=== PATIENT | female | born 1995 | race Caucasian/White ===

== ENCOUNTER → 2017-02-05 | Outpatient (CLI) | payer OTHER ==
--- NOTE | 2017-02-05 10:42 | Diagnostic Imaging Report ---
PROCEDURE: US Gallbladder. TECHNIQUE: Multiple real-time grayscale images were obtained over the right upper quadrant in various projections. INDICATION: Biliary colic. FINDINGS: The visualized portions of the pancreas appear unremarkable. The liver is fairly homogeneous with no focal lesion seen. The gallbladder demonstrates no stones, wall thickening, or pericholecystic fluid. The CBD is 2 mm in caliber. The right kidney is 11 cm in length with no hydronephrosis or focal lesion. No fluid collection is seen in the upper right quadrant. Sonographic Mata sign is negative. IMPRESSION: Unremarkable exam. Dictated by: Dictated on workstation # [id number]
== END ==
LOC: RAD 09:08
PROVIDERS: ATTEND Obstetrics & Gynecology
DX: K80.50 Calculus of bile duct without cholangitis or cholecystitis without obstruction (principal)
CPT/HCPCS: 76705

== ENCOUNTER → 2017-02-21 | Outpatient (CLI) | payer OTHER ==
[~2017-02-21] MED LIST: CATHETER FLUSH 10 ML SYR IV PRN
--- NOTE | 2017-02-21 12:44 | Diagnostic Imaging Report ---
INDICATION: Biliary colic. After intravenous administration of 5.5 mCi Tc 99m Choletec, scintigraphic imaging is performed over the abdomen. There is normal distribution of activity throughout the liver on initial images. There is prompt appearance of activity in the biliary tree and gallbladder. Activity passes into the small bowel. Patient ingested fatty meal which resulted in gallbladder contraction and an ejection fraction of 21%. IMPRESSION: No scintigraphic evidence of acute cholecystitis or biliary obstruction. Gallbladder ejection fraction is calculated to be 21%. Normal values are 35% or more. Depression of gallbladder ejection can be seen with chronic cholecystitis or biliary dyskinesia. Dictated by: Dictated on workstation # [id number]
== END ==
LOC: EDUNIT# 02-01 08:26 → RAD 09:34
PROVIDERS: ATTEND Obstetrics & Gynecology
DX: K80.50 Calculus of bile duct without cholangitis or cholecystitis without obstruction (principal)
CPT/HCPCS: 78227

== ENCOUNTER 2017-03-04 06:53 | Outpatient (CLI) | payer OTHER ==
[~2017-03-04] VITALS: Ht 185.4 cm; Wt 93.0 kg
[2017-03-04] MEDS ORDERED: DESO1TAB4 PO (15:42)
== END 2017-03-04 15:53 ==
LOC: PREOP 06:53
PROVIDERS: ATTEND Surgery
DX: Z01.818 Encounter for other preprocedural examination (principal); K82.8 Other specified diseases of gallbladder

== ENCOUNTER 2017-03-07 07:31 | Day surgery (SDC) | payer OTHER ==
[~2017-03-07] VITALS: Ht 185.4 cm; Wt 93.0 kg
[~2017-03-07 07:31] MED LIST changes: -CATHETER FLUSH 10 ML SYR IV PRN; +DESO1TAB4 PO
--- NOTE | 2017-03-07 07:54 | Progress Note-Pre Operative ---
Pre-Operative Progress Note H&P Reviewed The H&P was reviewed, patient examined and no changes noted. Date Seen by Provider: Mar 07, 2017 Time Seen by Provider: 07:54 Date H&P Reviewed: Mar 07, 2017 Time H&P Reviewed: 07:54 Pre-Operative Diagnosis: GB dyskinesia LEEROY MALAGON MD Mar 07, 2017 7:54 am
[2017-03-07] MEDS ORDERED: MIDAZOLAM 2 MG/2 ML (VERSED) VIAL IV ONE (08:00)
[2017-03-07] MEDS ORDERED: FAMOTIDINE 20MG/2ML IV (PEPCID) IV ONE (08:00)
[2017-03-07] MEDS ORDERED: ONDANSETRON 4 MG/2 ML (SDV) Z0FRAN IV ONE (08:00)
[2017-03-07] MEDS ORDERED: SCOPOLAMINE 1.5 MG (TRANSDERM-SCOP) PATCH TOP ONE (08:00)
[2017-03-07] MEDS ORDERED: CATHETER FLUSH 10 ML SYR IV PRN (08:45)
[2017-03-07] MEDS ORDERED: metroNIDAZOLE 500 MG/100 ML IVPB (PRE-MIX) IV ONE (08:45)
[2017-03-07] MEDS ORDERED: ceFAZolin 2 GM/NS 50 ML IV ONE (08:45)
[2017-03-07 08:46] LABS: BASOPHILS % (AUTO) 1 % (0-10); EOSINOPHILS # (AUTO) 0.1 10^3/uL (0.0-0.3); EOSINOPHILS % (AUTO) 2 % (0-10); LYMPHOCYTES # (AUTO) 1.5 X 10^3 (1.0-4.0); LYMPHOCYTES % (AUTO) 25 % (12-44); MEAN CORPUSCULAR HEMOGLOBIN 30 PG (25-34); MEAN CORPUSCULAR HGB CONC 34 G/DL (32-36); MEAN CORPUSCULAR VOLUME 87 FL (80-99); MEAN PLATELET VOLUME 11.4 FL (7.4-10.4); MONOCYTES # (AUTO) 0.5 X 10^3 (0.0-1.0); MONOCYTES % (AUTO) 8 % (0-12); NEUTROPHILS # (AUTO) 4.1 X 10^3 (1.8-7.8); NEUTROPHILS % (AUTO) 65 % (42-75); PLATELET COUNT 191 10^3/uL (130-400); RED BLOOD COUNT 4.51 10^6/uL (4.35-5.85); RED CELL DISTRIBUTION WIDTH 12.1 % (10.0-14.5); WHITE BLOOD COUNT 6.2 10^3/uL (4.3-11.0)
[2017-03-07] MEDS: LACTATED RINGERS 1,000 ML IV PRN ×2 (09:00→11:00)
[2017-03-07] MEDS ORDERED: BUP/EPI 0.5% 1:200,000 (MARCAINE) 10ML VIAL IJ ONE (09:04)
[2017-03-07] MEDS ORDERED: fentaNYL INJECTION 250 MCG/5 ML AMP ONE (09:11)
[2017-03-07] MEDS ORDERED: CEPH250C PO (09:12)
[2017-03-07 09:13] VITALS: BP 126/84
[2017-03-07] MEDS ORDERED: ROCURONIUM 50 MG/5 ML (ZEMURON) VIAL IV ONE (09:13)
[2017-03-07] MEDS ORDERED: proPOfol 200 MG/20 ML (DIPRIVAN) VIAL IV ONE (09:13)
[2017-03-07] MEDS ORDERED: MIDAZOLAM 2 MG/2 ML (VERSED) VIAL ONE (09:13)
[2017-03-07] MEDS ORDERED: LIDOCAINE JELLY 2% (XYLOCAINE) 5 ML TUBE ONE (09:13)
[2017-03-07] MEDS ORDERED: LACTATED RINGERS 1,000 ML IV ONE (09:13)
[2017-03-07] MEDS ORDERED: ONDANSETRON 4 MG/2 ML (SDV) Z0FRAN ONE ×2 (09:13→11:17)
[2017-03-07] MEDS ORDERED: LIDOCAINE PF 2% 5 ML (XYLOCAINE) VIAL ONE (09:13)
[2017-03-07] MEDS ORDERED: SEVOFLURANE (ULTANE) 15 ML INHAL SOLN ONE ×2 (10:36→10:59)
[2017-03-07] MEDS ORDERED: GLYCOPYRROLATE 0.2 MG/ML (ROBINUL) 2 ML VIAL ONE (10:43)
[2017-03-07] MEDS ORDERED: NEOSTIGMINE (BLOXIVERZ ) 1 MG/1ML 10 ML VIAL ONE (10:43)
[2017-03-07] MEDS ORDERED: MEPERIDINE (DEMEROL) INJ 50 MG/ML ONE (10:51)
--- NOTE | 2017-03-07 10:51 | Operative Report ---
Operative Report Date of Procedure/Surgery Mar 07, 2017 Surgeon (s) LEEROY MALAGON MD Checking Clerk (s): not applicable Post-Operative Diagnosis same Procedure Performed robotic-assisted cholecystectomy Description of Procedure Anesthesia Type: General Estimated blood loss (mL): minimal Specimen(s) collected/removed gallbladder Description of the Procedure Indication for the procedure: This lady presented with symptoms due to dyskinesia of the gallbladder. She was offered cholecystectomy using minimally invasive technique with robotic assistance. Informed consent was obtained after reviewing the operative details and complications of wound infection, bile leak and the possibility of persistent symptoms. Description of the procedure: She was placed supine on the operative table and general anesthesia induced using an endotracheal tube. 2 g of Ancef and 500 mg of Flagyl were administered intravenously as prophylaxis against wound infection. Sequential compression devices were placed around her legs, to minimize the risk of venous thrombosis. Abdomen was prepared and draped in the usual sterile manner. Pneumoperitoneum was established using a Veress needle introduced inferior to the umbilicus. Intra-abdominal pressure was maintained at 15 mmHg, using carbon dioxide insufflation. A 12 mm trocar was placed and anatomy visualized using the high definition, 3-dimensional laparoscope, associated with da Hernan system. Under direct view, I placed an 8 mm cannula over each side of the abdomen, followed by a 5 mm trocar over the left subcostal region. The patient was then turned into reverse Trendelenburg position, with the right side tilted up. The robotic system was then docked in place. The fundus of the gallbladder was retracted cephalad and the infundibulum grasped with robotic Cardiere forceps. Due to the tense nature of the gallbladder, I. intentionally made a small incision at the fundus with the hook cautery and decompressed some of the bile. This was suctioned at the end of the operation. Subsequently, I was able to continue the dissection around Juliet' s triangle. Cystic duct and artery were delineated and controlled using locking clips. Cholecystectomy was then completed using hook cautery. The gallbladder was then placed in an Endo Catch bag and removed via the subumbilical trocar site. The fascia over this incision was closed using #1 Vicryl using a Manuel Yancey device. Skin incisions were closed using 4-0 Vicryl, in a subcuticular fashion. 0.25 percent Marcaine with epinephrine was infiltrated along the incisions, both pre-emptying the and at the conclusion of the operation. She tolerated the procedure well, was extubated in the operating room and taken to the recovery room in a stable condition. Findings of the Procedure see operative report Allergies and Home Medications Allergies Coded Allergies: hydrocodone (Unverified Allergy, Intermediate, HIVES, 03/04/17) Home Medications Cephalexin Unknown Strength Capsule, Unknown Dose PO, (Reported) Desogestrel-Ethinyl Estradiol 1 Each Tablet, 1 EACH PO DAILY, (Reported) LEEROY MALAGON MD Mar 07, 2017 10:51 am
[2017-03-07] MEDS ORDERED: morphine INJ 10 MG/ML 1ML (SYR OR VIAL) ONE (10:52)
[2017-03-07] MEDS ORDERED: OXYC-197 PO (10:52)
--- NOTE | 2017-03-07 10:53 | Discharge Inst-Simple/Standard ---
Discharge Inst-Standard Discharge Medications New, Converted or Re-Newed RX: RX on Chart Patient Instructions/Follow Up Plan of Care/Instructions/FU: Band-Aids off in 48 hours. Incentive spirometry. Follow-up in 3 weeks. Activity as Tolerated: Yes Discharge Diet: No Restrictions LEEROY MALAGON MD Mar 07, 2017 10:53 am
[2017-03-07] MEDS: MEPERIDINE (DEMEROL) INJ 50 MG/ML IVP PRN ×2 (11:10→11:20)
[2017-03-07] MEDS ORDERED: ONDANSETRON 4 MG/2 ML (SDV) Z0FRAN IVP PRN (11:15)
[2017-03-07] MEDS: fentaNYL INJECTION 100 MCG/2 ML AMP IVP PRN ×3 (11:15→11:37)
[2017-03-07 11:55] VITALS: BP 132/78
[2017-03-07 12:25] VITALS: BP 133/77
[2017-03-07 12:55] VITALS: BP 128/75
[2017-03-07] MEDS ORDERED: PROMETHAZINE INJ 25 MG/ML (PHENERGAN) AMP IVP ONE ×2 (13:00)
[2017-03-07] MEDS ORDERED: TRAM50TA2 PO (13:07)
[2017-03-07 14:55] VITALS: BP 128/75
== END 2017-03-07 14:55 | disposition home or self-care (01) ==
LOC: SDC 07:31
PROVIDERS: ATTEND Surgery
DX: K81.1 Chronic cholecystitis (principal); Z87.891 Personal history of nicotine dependence
CPT/HCPCS: 36415; 84703; 85025; 87081; 88304; 94664

== ENCOUNTER 2018-06-16 05:40 | Outpatient (CLI) | payer OTHER ==
[~2018-06-16] VITALS: Ht 185.4 cm; Wt 93.0 kg
[~2018-06-16 05:40] MED LIST changes: +CEPH250C PO; +OXYC1TAB87 PO; +TRAM50TA2 PO
== END 2018-06-16 14:42 | disposition home or self-care (01) ==
LOC: PREOP 05:40
PROVIDERS: ATTEND Surgery
DX: Z01.818 Encounter for other preprocedural examination (principal)

== ENCOUNTER 2018-06-23 09:34 | Day surgery (SDC) | payer OTHER ==
[~2018-06-23] VITALS: Ht 185.4 cm; Wt 93.0 kg
[2018-06-23] MEDS ORDERED: MIDAZOLAM 2 MG/2 ML (VERSED) VIAL IVP ONE ×2 (09:45→10:30)
[2018-06-23] MEDS ORDERED: fentaNYL INJECTION 100 MCG/2 ML AMP IVP ONE (09:45)
[2018-06-23] MEDS ORDERED: NS IV 500 ML 500 ML IV PRN (09:45)
[2018-06-23 10:11] VITALS: BP 119/88
[2018-06-23] MEDS ORDERED: MIDAZOLAM 2 MG/2 ML (VERSED) VIAL ONE ×4 (10:27→11:32)
--- NOTE | 2018-06-23 10:53 | Conscious Sedation/ASA ---
Conscious Sedation Pre-Proced Time 10:53 ASA Score 2 For ASA 3 and 4: Consider anesthesia and medical clearance. Also, for patients with a history of failed moderate sedation consider anesthesia. Airway Lungs Heart ASA score ASA 1: a normal healthy patient ASA 2: a patient with a mild systemic disease (mid diabetes, controlled hypertension, obesity ASA 3: a patient with a severe systemic disease that limits activity (angina , COPD, prior Myocardial infarction) ASA 4: a patient with an incapacitating disease that is a constant threat to life (CHF, renal failure) ASA 5: a moribund patient not expected to survive 24 hrs. (ruptured aneurysm) ASA 6: a declared brain patient whose organs are being harvested. For emergent operations, add the letter E after the classification Mallampati Classification Grade 1 Sedation Plan Discussed options with patient/fam The patient is an appropriate candidate to undergo the planned procedure, sedation, and anesthesia. The patient immediately re-assessed prior to indication. LEEROY MALAGON MD Jun 23, 2018 10:53
--- NOTE | 2018-06-23 10:53 | History & Physicial ---
History of Present Illness History of Present Illness Reason for visit/HPI to undergo colonoscopy regarding rectal bleeding. Date of Admission 06/23/18 Date Seen by a Provider: Jun 23, 2018 Time Seen by a Provider: 10:51 I consulted on this patient on 06/23/18 10:51 Attending Physician Leeroy Malagon MD Admitting Physician No,Local Physician Consult Allergies and Home Medications Allergies Coded Allergies: hydrocodone (Unverified Allergy, Intermediate, HIVES, 06/16/18) sulfamethoxazole (Verified Allergy, Mild, HIVES, 06/16/18) trimethoprim (Verified Allergy, Mild, HIVES, 06/16/18) acetaminophen (Verified Allergy, Unknown, RASH, 06/16/18) oxycodone (Verified Allergy, Unknown, RASH, 06/16/18) Home Medications Desogestrel-Ethinyl Estradiol 1 Each Tablet, 1 EACH PO DAILY, (Reported) Patient Home Medication List Home Medication List Reviewed: Yes Past [place]ve[place]-Rsboxd-Whugdp Hx Patient Social History Marrital Status: single Employed/Student: employed Alcohol Use: Occasionally Uses Recreational Drug Use: No Smoking Status: Current Everyday Smoker Former Smoker, Quit: Nov 03, 2015 Type Used: Cigarettes Recent Foreign Travel: No Contact w/other who traveled: No Recent Hopitalizations: No Recent Infectious Disease Expo: No Immunizations Up To Date Tetanus Booster (TDap): Unknown Seasonal Allergies Seasonal Allergies: No Surgeries Yes Gallbladder Respiratory No Currently Using CPAP: No Currently Using BIPAP: No Cardiovascular No Neurological No Reproductive System Hx Reproductive Disorders: No Sexually Transmitted Disease: No HIV/AIDS: No Female Reproductive Disorders: Denies Genitourinary UTI-Chronic Gastrointestinal Chronic Constipation, Chronic Diarrhea HEENT Loss of Vision: Bilateral Hearing Impairment: Denies Psychosocial Behavioral Health Disorders: Anxiety Blood Transfusions Adverse Reaction to a Blood Tr: No (N/A) Review of Systems Constitutional: no symptoms reported EENTM: no symptoms reported Cardiovascular: no symptoms reported Genitourinary: no symptoms reported Musculoskeletal: no symptoms reported Skin: no symptoms reported Psychiatric/Neurological: No Symptoms Reported Physical Exam Vital Signs Vital Signs - First Documented 06/23/18 10:11 Temp 97.6 Pulse 90 Resp 18 B/P (MAP) 119/88 (98) Pulse Ox 96 O2 Delivery Room Air Capillary Refill : Height, Weight, BMI Height: 6'1.00" Weight: 205lbs. 0.0oz. 92.918469bx; 27.1 BMI Method: General Appearance: No Apparent Distress Neck: Normal Inspection Respiratory: Lungs Clear Cardiovascular: Regular Rate, Rhythm Gastrointestinal: Non Tender, Soft Rectal: Deferred Extremity: Normal Inspection Neurologic/Psychiatric: Oriented x3 Skin: Warm/Dry Assessment/Plan Assessment and Plan lady with rectal bleeding. For colonoscopy. Admission Diagnosis Admission Status: Other (Outpt Proc) LEEROY MALAGON MD Jun 23, 2018 10:53
[2018-06-23] MEDS ORDERED: fentaNYL INJECTION 100 MCG/2 ML AMP ONE (11:32)
--- NOTE | 2018-06-23 12:01 | Endo Procedure Record ---
Endo Procedure Report Date of Procedure Last Colonoscopy: No Jun 23, 2018 Surgeon (s) LEEROY MALAGON MD Post Procedure/Op Diagnosis internal hemorrhoids Procedure Performed colonoscopy to cecum Description of Procedure Anesthesia Type: Conscious Sedation Specimen(s) collected/removed None Description of the Procedure Indication for the procedure: This lady came in for colonoscopy to evaluate rectal bleeding. Informed consent was obtained after reviewing the procedure in detail. Description of the procedure: She was placed in left lateral rectus position and her vital signs were monitored. Conscious sedation was achieved using Versed and fentanyl. Digital rectal examination was unremarkable. The colonoscope was then introduced into the rectum and advanced all the way up to cecum The quality of bowel preparation was excellent. The scope was then withdrawn slowly and the mucosa examined in a systematic fashion. Findings: A very mild degree of internal hemorrhoids, the potential source of bleeding. No polyps were found She tolerated the procedure well and was taken back to the nursing area in a stable condition. Impression: Rectal bleeding due to internal hemorrhoids. Recommend conservative management with stool softeners LEEROY MALAGON MD Jun 23, 2018 12:01
--- NOTE | 2018-06-23 12:02 | Discharge Inst-Simple/Standard ---
Discharge Inst-Standard Discharge Medications New, Converted or Re-Newed RX: Other Patient Instructions/Follow Up Plan of Care/Instructions/FU: to avoid constipation. Stool softeners as needed. Activity as Tolerated: Yes Discharge Diet: No Restrictions LEEROY MALAGON MD Jun 23, 2018 12:02
[2018-06-23 12:15] VITALS: BP 106/63
[2018-06-23 12:40] VITALS: BP 113/77
[2018-06-23 12:49] VITALS: BP 113/77
== END 2018-06-23 12:45 | disposition home or self-care (01) ==
LOC: ENDO 09:34
PROVIDERS: ATTEND Surgery
DX: K64.8 Other hemorrhoids (principal); K59.9 Functional intestinal disorder, unspecified; K52.9 Noninfective gastroenteritis and colitis, unspecified; F17.210 Nicotine dependence, cigarettes, uncomplicated
CPT/HCPCS: 84703

== ENCOUNTER 2018-11-24 21:53 | Emergency (ER) | payer OTHER ==
[~2018-11-24] VITALS: Ht 185.4 cm; Wt 102.1 kg
--- OUTSIDE RECORDS SUMMARY | 2018-11-24 21:59 | XMS REPORT | Continuity Of Care Document ---
Author Author [facility] Organization [facility] Address [address] [place] [address] Phone Care Team Providers Care Draw In Hand Name Role Phone UNASSIGNED, ED PHYSICIAN Unavailable Unavailable LINDA MCKINNEY, CAROLE Joseph PP KEN PATEL DO AT Results Results No Result Data Allergies and Adverse Reactions Allergies and Adverse Reactions Patient Unit Number: [id number] No Allergies, Adverse Reactions, or Alerts Problem List Problem List Visit/Account #[id number] (September 06, 2013 7:47pm - September 06, 2013 9:22pm) Acute Problems: Code/Condition Comments Documented Start Date Documented Resolved Date Code (s) left anterior cervical/posterior cervical lymphadenopathy Plan of Care Plan Of Care Visit/Account #[id number] (September 06, 2013 7:47pm - September 06, 2013 9:22pm) Instructions/Comments: DI for Lymphadenopathy Take the norco 1-2 tablets every 6 hours as needed for pain, do not drive while taking this medication. Followup with Dr. Onofre in 7-10 days. Vital Signs Vital Signs Visit/Account #[id number] (September 06, 2013 7:47pm - September 06, 2013 9:22pm) Label First Result Last Result 3141-9: Weight Measured 175 lbs September 06, 2013 7:46pm 79.591790 kg September 06, 2013 7:46pm 8310-5: Body Temperature 97.9 degF September 06, 2013 7:46pm 8310-5: Fahrenheit Body Temperature 98.2 [degF] September 06, 2013 9:19pm 8480-6: BP Systolic 115/ mmHg September 06, 2013 7:46pm 72/ mm[Hg] September 06, 2013 9:19pm 8867-4: Heart Rate 92 /min September 06, 2013 7:46pm 68 /min September 06, 2013 9:19pm 9279-1: Respiratory Rate 98 /min September 06, 2013 7:46pm 20 /min September 06, 2013 9:19pm Unmapped Query Mnemonic (RESP.SAT) Saturation 100 % September 06, 2013 7:46pm 100 % September 06, 2013 7:46pm Unmapped Query Mnemonic (VS.BMI) Body Mass Index (BMI) 23 September 06, 2013 7:46pm 23 September 06, 2013 7:46pm Functional Status Functional Status No Functional Status Data Medications Inpatient/Ordered Medications Visit/Account #[id number] (September 06, 2013 7:47pm - September 06, 2013 9:22pm) Medication Route Sig/Schedule Precondition/Indication Comments/Instructions Codes SUBLIMAZE INJ(FentaNYL CITRATE) 100 MCG/2 ML INJECTION Total Dose: 75 ML INTRAMUSC NOW: NOW Rx Order Comments: Order placed as verified: Allergies/Duplicates/Interactions differ from field recorder Dose Warnings differ from field recorder Label Comments: MAY INCREASE FALL RISK SUBLIMAZE INJ (FentaNYL CITRATE) RxNorm: [id number] SUBLIMAZE INJ (FentaNYL CITRATE) NDC: [id number] Discharge Medications Visit/Account #[id number] (September 06, 2013 7:47pm - September 06, 2013 9:22pm) Medication Route Sig/Schedule Precondition/Indication Comments/Instructions Codes NORCO 5-325(HYDROcodone/ACETAMINOPHEN) 1 EACH TABLET ORAL Q6S: EVERY 6 HOURS NORCO 5-325 (HYDROcodone/ACETAMINOPHEN) RxNorm: [id number] NORCO 5-325 (HYDROcodone/ACETAMINOPHEN) NDC: [id number] History Of Encounters Encounters Visit/Account #[id number] (September 06, 2013 7:47pm - September 06, 2013 9:22pm) Account Status Physican Of Record Reason For Visit Visit Diagnosis Start Date/Time Stop Date/Time JENNIFER PATEL, DO SORE THROAT, SWOLLEN GLANDS IN NECK 462: ACUTE PHARYNGITIS ICD9 Sep 06, 2013 7:47pm Sep 06, 2013 9:22pm History of Procedures Procedure List No Procedures Discharge Instructions Discharge Instructions Visit/Account #[id number] (September 06, 2013 7:47pm - September 06, 2013 9:22pm) No Discharge Instructions Reports. Social History Social History Visit/Account #[id number] (September 06, 2013 7:47pm - September 06, 2013 9:22pm) Smoking Status Never smoker September 06, 2013 8:09pm Immunizations Immunizations Patient Unit Number: [id number] Immunizations No Immunizations Administered
--- OUTSIDE RECORDS SUMMARY | 2018-11-24 21:59 | XMS REPORT | Continuity of Care Document ---
Author Organization Unknown Address Unknown Allergies Active Description Code Type Severity Reaction Onset Reported/Identified Relationship to Patient Clinical Status Yes No known allergies [id number] NK N/A N/A 09/13/2013 Medications There is no data. Problems Date Dx Coded Attending Type Code Diagnosis Diagnosed By 09/13/2013 STEFANIE MACIEL MD 075 INFECTIOUS MONONUCLEOSIS 09/13/2013 STEFANIE MACIEL MD 784.0 HEADACHE 09/13/2013 STEFANIE MACIEL MD 786.2 COUGH 09/13/2013 STEFANIE MACIEL MD 075 INFECTIOUS MONONUCLEOSIS 09/13/2013 STEFANIE MACIEL MD 708.9 URTICARIA NOS 09/13/2013 STEFANIE MACIEL MD 784.0 HEADACHE 09/13/2013 STEFANIE MACIEL MD 786.2 COUGH Procedures Code Description [place] [address] EMERGENCY DEPT VISIT STEFANIE MACIEL MD 09/13/2013 10395 EMERGENCY DEPT VISIT STEFANIE MACIEL MD 09/13/2013 Results There is no data. Encounters ACCT No. Visit Date/Time Discharge Status Pt. Type Provider Facility Loc./Unit Complaint [id number] 09/13/2013 12:35:00 09/13/2013 13:10:00 DIS Emergency STEFANIE MACIEL MD [facility] [id number] 09/13/2013 12:50:00 09/13/2013 13:05:00 DIS Outpatient STEFANIE MACIEL MD [id number] 09/14/2013 15:47:06 ACT Document Registration [id number] 09/10/2014 09:45:32 09/10/2014 23:59:59 [facility] Fili Onofre [id number] 09/09/2014 15:45:12 09/09/2014 23:59:59 [facility] Fili Onofre [id number] 06/11/2014 16:10:21 06/11/2014 23:59:59 [facility] Outpatient Fransisca Santiago [id number] 09/10/2013 10:40:25 09/10/2013 23:59:59 [facility] Outpatient Fili Onofre [id number] 09/03/2013 16:05:30 09/03/2013 23:59:59 [facility] Outpatient Fili Onofre [id number] 03/19/2013 11:01:26 03/19/2013 23:59:59 [facility] Outpatient Carito Onofre [id number] 03/11/2013 11:47:37 03/11/2013 23:59:59 [facility] Outpatient Carito Onofre [id number] 02/18/2013 11:16:53 02/18/2013 23:59:59 CLS Outpatient Fili Onofre
--- OUTSIDE RECORDS SUMMARY | 2018-11-24 21:59 | XMS REPORT | Continuity Of Care Document ---
Author Author [facility] Organization [facility] Address [address] [place] [address] Phone Care Team Providers Care Brick Carrier Name Role Phone KEN PATEL DO AT CAROLE MCKEON MD PP Vital Signs Vital Signs Visit/Account #[id number] (September 06, 2013 7:47pm - September 06, 2013 9:22pm) Label First Result Last Result 3141-9: Weight Measured 175 lbs September 06, 2013 7:46pm 79.886097 kg September 06, 2013 7:46pm 8310-5: Body [...] 7:46pm 100 % September 06, 2013 7:46pm Ordered Medications Ordered Medications Visit/Account #[id number] (September 06, 2013 7:47pm - September 06, 2013 9:22pm) Medication Dose Route Sig/Schedule Precondition/Indication Comments/ Instructions NDC SUBLIMAZE INJ(FentaNYL CITRATE) 100 MCG/2 ML INJECTION 75 MCG IM: INTRAMUSC NOW: NOW Rx Order Comments: Order placed as verified: Allergies/Duplicates/Interactions differ from order dispatcher Dose Warnings differ from order dispatcher Label Comments: MAY INCREASE FALL RISK SUBLIMAZE INJ (FentaNYL CITRATE): [id number] Discharge Medications Discharge Medications Visit/Account #[id number] (September 06, 2013 7:47pm - September 06, 2013 9:22pm) Medication Dose Route Sig/Schedule Precondition/Indication Comments/ Instructions NDC NORCO 5-325(HYDROCODONE/ACETAMINOPHEN) 1 EACH TABLET 1-2 TAB PO: ORAL Q6S: EVERY 6 HOURS NORCO 5-325 (HYDROCODONE/ACETAMINOPHEN): [id number] History Of Encounters Encounters Visit/Account #[id number] (September 06, 2013 7:47pm - September 06, 2013 9:22pm) No reports exist, or have been identified for inclusion with this encounter.
[2018-11-24 22:31] LABS: BILIRUBIN,URINE NEGATIVE (NEGATIVE); CLARITY,URINE CLEAR; COLOR,URINE YELLOW; GLUCOSE, URINE (UA) NEGATIVE (NEGATIVE); KETONES,URINE NEGATIVE (NEGATIVE); LEUKOCYTE ESTERASE ,URINE 1+ (NEGATIVE); NITRITE,URINE NEGATIVE (NEGATIVE); PH,URINE 7 (5-9); PROTEIN,URINE NEGATIVE (NEGATIVE); UROBILINOGEN,URINE NORMAL (NORMAL)
[2018-11-24 22:38] LABS: BACTERIA,URINE TRACE /HPF; WBC,URINE RARE /HPF
--- NOTE | 2018-11-24 22:51 | ED Cough/URI ---
General Chief Complaint: Fever-Adult/Adol Stated Complaint: FEVER/HEADACHE/NECK STIFFNESS/PAIN Nursing Triage Note: PATIENT AMBULATORY TO ER WITH COMPLAINT OF FEVER SINCE SATURDAY NIGHT. PATIENT IS ALSO COMPLAINING OF HEADACHE, NECK AND LOWER BACK PAIN, AND SORE THROAT. PATIENT STATES SHE HAS BEEN TAKING OTC MEDS TO RELIEVE THE FEVER. Sepsis Screen: Possible Sepsis Risk Source: patient Exam Limitations: no limitations (GRANT PHELPS) History of Present Illness Date Seen by Provider: Nov 24, 2018 Time Seen by Provider: 22:10 Initial Comments 23-year-old female who presents to emergency room with complaints of cough, fever, headache, neck to lower back pain, and sore throat for the past 3 days. She reports that she's had intermittent fever that she has been taking over-the- counter medications for. She was afebrile on arrival to the Severity/Quality: mild Associated Symptoms: fever/chills, headache, sore throat (GRANT PHELPS) Allergies and Home Medications Allergies Coded Allergies: hydrocodone (Unverified Allergy, Intermediate, HIVES, 06/16/18) sulfamethoxazole (Verified Allergy, Mild, HIVES, 06/16/18) trimethoprim (Verified Allergy, Mild, HIVES, 06/16/18) acetaminophen (Verified Allergy, Unknown, RASH, 06/16/18) oxycodone (Verified Allergy, Unknown, RASH, 06/16/18) Home Medications Desogestrel-Ethinyl Estradiol 1 Each Tablet, 1 EACH PO DAILY, (Reported) Patient Home Medication List Home Medication List Reviewed: Yes (GRANT PHELPS) Review of Systems Review of Systems Constitutional: see HPI, chills, fever EENTM: see HPI, throat pain Musculoskeletal: see HPI, back pain, neck pain (GRANT PHELPS) All Other Systems Reviewed Negative Unless Noted: Yes (GRANT PHELPS) Past Dxrofkh-Kdpdbi-Pkjxgm Hx Past Med/Social Hx: Reviewed Nursing Past Med/Soc Hx (GRANT PHELPS) Patient Social History Alcohol Use: Rarely Uses Recreational Drug Use: No Smoking Status: Current Everyday Smoker Type Used: Cigarettes Former Smoker, Quit: Nov 03, 2015 2nd Hand Smoke Exposure: Yes Recent Foreign Travel: No Contact w/Someone Who Travel: No Recent Infectious Disease Expo: No Recent Hopitalizations: No (GRANT PHELPS) Immunizations Up To Date Tetanus Booster (TDap): Unknown PED Vaccines UTD: Yes (GRANT PHELPS) Seasonal Allergies Seasonal Allergies: No (GRANT PHELPS) Past Medical History Surgeries: Yes (WISDOM TEETH) Gallbladder Respiratory: No Currently Using CPAP: No Currently Using BIPAP: No Cardiac: No Neurological: No Reproductive Disorders: No Female Reproductive Disorders: Denies Sexually Transmitted Disease: No HIV/AIDS: No UTI-Chronic Gastrointestinal: Yes (RECTAL BLEEDING) Chronic Constipation, Chronic Diarrhea Musculoskeletal: No Endocrine: Yes (HYPOGLYCEMIA) Loss of Vision: Bilateral Hearing Impairment: Denies Cancer: No Psychosocial: Yes Anxiety Integumentary: No Blood Disorders: No Adverse Reaction/Blood Tranf: No (N/A) (GRANT PHELPS) Family Medical History Reviewed Nursing Family Hx (GRANT PHELPS) Physical Exam Vital Signs - First Documented 11/24/18 22:19 Temp 98.1 Pulse 94 Resp 16 B/P (MAP) 136/88 (104) Pulse Ox 99 O2 Delivery Room Air (RAFAL FUENTES MD) Capillary Refill : Less Than 3 Seconds (GRANT PHELPS) Height: 6'1.00" Weight: 225lbs. 0.0oz. 102.427867va; 27.1 BMI Method:Stated General Appearance: WD/WN, no apparent distress HEENT: PERRL/EOMI, normal ENT inspection, TMs normal, pharynx normal Neck: full range of motion (pain with range of motion), supple, normal inspection, tender lateral Respiratory: chest non-tender, lungs clear, normal breath sounds, no respiratory distress, no accessory muscle use, respiratory distress Cardiovascular: normal peripheral pulses, regular rate, rhythm, no edema, no gallop, no JVD, no murmur Extremities: normal capillary refill Neurologic/Psychiatric: alert, normal mood/affect, oriented x 3 Skin: normal color, warm/dry (GRANT PHELPS) Progress/Results/Core Measures Suspected Sepsis Recent Fever Within 48 Hours: Yes Infection Criteria Present: Suspected New Infection New/Unexplained Altered Menta: No Sepsis Screen: Possible Sepsis Risk SIRS Temperature:98.1 Pulse: 94 Respiratory Rate: 16 Blood Pressure 136 /88 Mean: 104 (GRANT PHELPS) Results/Orders Lab Results Laboratory Tests Test 11/24/18 22:18 11/24/18 22:25 11/24/18 23:43 Range/Units Urine Color YELLOW Urine Clarity CLEAR Urine pH 7 5-9 Urine Specific Watson 1.010 L 1.016-1.022 Urine Protein NEGATIVE NEGATIVE Urine Glucose (UA) NEGATIVE NEGATIVE Urine Ketones NEGATIVE NEGATIVE Urine Nitrite NEGATIVE NEGATIVE Urine Bilirubin NEGATIVE NEGATIVE Urine Urobilinogen NORMAL NORMAL MG/DL Urine Leukocyte Esterase 1+ H NEGATIVE Urine RBC (Auto) NEGATIVE NEGATIVE Urine RBC NONE /HPF Urine WBC RARE /HPF Urine Squamous Epithelial Cells 2-5 /HPF Urine Crystals NONE /LPF Urine Bacteria TRACE /HPF Urine Casts NONE /LPF Urine Mucus NEGATIVE /LPF Urine Culture Indicated NO Group A Streptococcus Screen NEGATIVE NEGATIVE White Blood Count 11.8 H 4.3-11.0 10^3/uL Red Blood Count 4.32 L 4.35-5.85 10^6/uL Hemoglobin 12.7 11.5-16.0 G/DL Hematocrit 38 35-52 % Mean Corpuscular Volume 88 80-99 FL Mean Corpuscular Hemoglobin 29 25-34 PG Mean Corpuscular Hemoglobin Concent 34 32-36 G/DL Red Cell Distribution Width 12.4 10.0-14.5 % Platelet Count 170 130-400 10^3/uL Mean Platelet Volume 11.3 H 7.4-10.4 FL Neutrophils (%) (Auto) 71 42-75 % Lymphocytes (%) (Auto) 19 12-44 % Monocytes (%) (Auto) 8 0-12 % Eosinophils (%) (Auto) 2 0-10 % Basophils (%) (Auto) 0 0-10 % Neutrophils # (Auto) 8.3 H 1.8-7.8 X 10^3 Lymphocytes # (Auto) 2.3 1.0-4.0 X 10^3 Monocytes # (Auto) 1.0 0.0-1.0 X 10^3 Eosinophils # (Auto) 0.2 0.0-0.3 10^3/uL Basophils # (Auto) 0.0 0.0-0.1 10^3/uL Sodium Level 137 135-145 MMOL/L Potassium Level 3.8 3.6-5.0 MMOL/L Chloride Level 107 98-107 MMOL/L Carbon Dioxide Level 19 L 21-32 MMOL/L Anion Gap 11 5-14 MMOL/L Blood Urea Nitrogen 10 7-18 MG/DL Creatinine 0.81 0.60-1.30 MG/DL Estimat Glomerular Filtration Rate > 60 BUN/Creatinine Ratio 12 Glucose Level 92 70-105 MG/DL Calcium Level 9.2 8.5-10.1 MG/DL Corrected Calcium 9.4 8.5-10.1 MG/DL Total Bilirubin 0.2 0.1-1.0 MG/DL Aspartate Amino Transf (AST/SGOT) 14 5-34 U/L Alanine Aminotransferase (ALT/SGPT) 10 0-55 U/L Alkaline Phosphatase 74 40-136 U/L C-Reactive Protein High Sensitivity 10.92 H 0.00-0.50 MG/DL Total Protein 7.1 6.4-8.2 GM/DL Albumin 3.7 3.2-4.5 GM/DL Serum Test, Qualitative NEGATIVE NEGATIVE Monoscreen NEGATIVE NEGATIVE (RAFAL FUENTES MD) Micro Results Microbiology 11/24/18 Influenza Types A,B Antigen (NELDA) - Final, Complete (RAFAL FUENTES MD) My Orders Orders - RAFAL FUENTES MD Influenza A And B Antigens (11/24/18 22:07) Rapid Strep A Screen (11/24/18 22:16) Ua Culture If Indicated (11/24/18 22:16) Cbc With Automated Diff (11/24/18 23:36) Comprehensive Metabolic Panel (11/24/18 23:36) Hs C Reactive Protein (11/24/18 23:36) Hcg,Qualitative Serum (11/24/18 23:36) Monotest (11/24/18 23:36) Ed Iv/Invasive Line Start (11/24/18 23:36) Ketorolac Injection (Toradol Injection) (11/25/18 00:45) (RAFAL FUENTES MD) Medications Given in ED Current Medications Medications Dose Ordered Sig/Marybel Route Start Time Stop Time Status Last Admin Dose Admin Ketorolac Tromethamine 30 mg ONCE ONCE IVP 11/25/18 00:45 11/25/18 00:46 DC 11/25/18 00:45 30 MG (RAFAL FUENTES MD) Vital Signs/I&O 11/24/18 22:19 Temp 98.1 Pulse 94 Resp 16 B/P (MAP) 136/88 (104) Pulse Ox 99 O2 Delivery Room Air (RAFAL FUENTES MD) Vital Signs/I&O Capillary Refill : Less Than 3 Seconds (GRANT PHELPS) Blood Pressure Mean: 104 Progress Note : Time: 11:15 Progress Note I have seen and evaluated the patient. I have informed her of her initial laboratory findings. She remains afebrile at this time. Dr. Melchor will be assuming care of the patient report was given. (GRANT PHELPS) Transfer of Care Transfer of Care Time: 23:28 Care transferred to: Dr. Melchor (GRANT PHELPS) Departure Impression Primary Impression: Acute febrile illness Additional Impression: Myalgia Disposition: 01 HOME, SELF-CARE Condition: Improved Departure-Patient Inst. Decision time for Depature: 01:30 (RAFAL FUENTES MD) Referrals: NO,LOCAL PHYSICIAN (PCP/Family) Primary Care Physician Patient Instructions: Fever, Adult (DC) Add. Discharge Instructions: For pain you may take ibuprofen up to 600 mg every 6 hours as needed and/or Tylenol (acetaminophen) up to 1000 mg every 6 hours. Stay home from work for the next 2 days and limit exposures to others to those absolutely necessary to avoid making others ill. Return to emergency room if symptoms are worsening. Drink plenty of clear liquids. All discharge instructions reviewed with patient and/or family. Voiced understanding. Work/School Note: Work Release Form Date Seen in the Emergency Department: Nov 25, 2018 Return to Work: November 27, 2018 Restrictions: Return-No Fever (24hrs) GRANT PHELPS Nov 24, 2018 22:51 RAFAL FUENTES MD Nov 25, 2018 01:33
[2018-11-24 23:49] LABS: BASOPHILS % (AUTO) 0 % (0-10); EOSINOPHILS # (AUTO) 0.2 10^3/uL (0.0-0.3); EOSINOPHILS % (AUTO) 2 % (0-10); HEMATOCRIT 38 % (35-52); HEMOGLOBIN 12.7 G/DL (11.5-16.0); LYMPHOCYTES # (AUTO) 2.3 X 10^3 (1.0-4.0); LYMPHOCYTES % (AUTO) 19 % (12-44); MEAN CORPUSCULAR HEMOGLOBIN 29 PG (25-34); MEAN CORPUSCULAR HGB CONC 34 G/DL (32-36); MEAN CORPUSCULAR VOLUME 88 FL (80-99); MEAN PLATELET VOLUME 11.3 FL (7.4-10.4); MONOCYTES % (AUTO) 8 % (0-12); NEUTROPHILS # (AUTO) 8.3 X 10^3 (1.8-7.8); NEUTROPHILS % (AUTO) 71 % (42-75); PLATELET COUNT 170 10^3/uL (130-400); RED CELL DISTRIBUTION WIDTH 12.4 % (10.0-14.5); WHITE BLOOD COUNT 11.8 10^3/uL (4.3-11.0)
[2018-11-25 00:11] LABS: ALANINE AMINOTRANSFERASE 10 U/L (0-55); ALBUMIN 3.7 GM/DL (3.2-4.5); ALKALINE PHOSPHATASE 74 U/L (40-136); BILIRUBIN,TOTAL 0.2 MG/DL (0.1-1.0); BUN/CREATININE RATIO 12; CALCIUM 9.2 MG/DL (8.5-10.1); CARBON DIOXIDE 19 MMOL/L (21-32); CHLORIDE 107 MMOL/L (98-107); CREATININE SERUM 0.81 MG/DL (0.60-1.30); GFR ESTIMATED > 60; GLUCOSE 92 MG/DL (70-105); POTASSIUM 3.8 MMOL/L (3.6-5.0); SODIUM 137 MMOL/L (135-145); TOTAL PROTEIN 7.1 GM/DL (6.4-8.2)
[2018-11-25] MEDS ORDERED: KETOROLAC 30 MG/ML VIAL IVP ONE (00:45)
--- NOTE | 2018-11-25 00:49 | NUR ---
PATIENT REQUESTING TO BE DISCHARGED. SHE STATES "I AM SO HUNGRY. I WANT TO GO EAT".
[2018-11-25 01:43] VITALS: BP 130/80
== END 2018-11-25 01:45 | disposition home or self-care (01) ==
LOC: EDUNIT# 21:53 → ER 21:54
DX: R50.9 Fever, unspecified (principal); M79.10 Myalgia, unspecified site; F41.9 Anxiety disorder, unspecified; Z88.5 Allergy status to narcotic agent; Z88.2 Allergy status to sulfonamides; Z88.8 Allergy status to other drugs, medicaments and biological substances; Z87.891 Personal history of nicotine dependence; Z98.890 Other specified postprocedural states; Z87.440 Personal history of urinary (tract) infections; Z87.19 Personal history of other diseases of the digestive system
CPT/HCPCS: 36415; 80053; 81000; 84703; 85025; 86141; 86308; 87430; 87804; 96374

== ENCOUNTER 2019-02-16 05:42 | Outpatient (CLI) | payer OTHER ==
[~2019-02-16] VITALS: Ht 185.4 cm; Wt 102.1 kg
== END 2019-02-16 14:23 | disposition home or self-care (01) ==
LOC: PREOP 05:42
PROVIDERS: ATTEND Obstetrics & Gynecology
DX: Z01.818 Encounter for other preprocedural examination (principal)

== ENCOUNTER 2019-02-18 11:50 | Day surgery (SDC) | payer OTHER ==
[~2019-02-18] VITALS: Ht 185.4 cm; Wt 102.1 kg
[2019-02-18] VITALS (12 sets, daily range): BP systolic 117–140; BP diastolic 71–90
[2019-02-18] MEDS ORDERED: SCOPOLAMINE 1.5 MG (TRANSDERM-SCOP) PATCH ONE (12:11)
[2019-02-18] MEDS ORDERED: ONDANSETRON 4 MG/2 ML (SDV) Z0FRAN ONE ×2 (12:11→13:15)
[2019-02-18] MEDS ORDERED: FAMOTIDINE 20MG/2ML IV (PEPCID) ONE (12:11)
[2019-02-18] MEDS ORDERED: ONDANSETRON 4 MG/2 ML (SDV) Z0FRAN IV ONE (12:15)
[2019-02-18] MEDS ORDERED: MIDAZOLAM 2 MG/2 ML (VERSED) VIAL IV ONE (12:15)
[2019-02-18] MEDS ORDERED: SCOPOLAMINE 1.5 MG (TRANSDERM-SCOP) PATCH TOP ONE (12:15)
[2019-02-18] MEDS ORDERED: ceFAZolin INJECTION 1,000 MG in WATER (STERILE) FOR INJECTION 10 ML IV ONE (12:15)
[2019-02-18] MEDS ORDERED: FAMOTIDINE 20MG/2ML IV (PEPCID) IV ONE (12:15)
[2019-02-18 12:16] LABS: BASOPHILS # (AUTO) 0.1 10^3/uL (0.0-0.1); BASOPHILS % (AUTO) 1 % (0-10); EOSINOPHILS # (AUTO) 0.1 10^3/uL (0.0-0.3); EOSINOPHILS % (AUTO) 1 % (0-10); HEMATOCRIT 33 % (35-52); HEMOGLOBIN 10.8 G/DL (11.5-16.0); LYMPHOCYTES % (AUTO) 21 % (12-44); MEAN CORPUSCULAR HEMOGLOBIN 29 PG (25-34); MEAN CORPUSCULAR HGB CONC 33 G/DL (32-36); MEAN CORPUSCULAR VOLUME 86 FL (80-99); MEAN PLATELET VOLUME 11.1 FL (7.4-10.4); MONOCYTES # (AUTO) 0.6 X 10^3 (0.0-1.0); MONOCYTES % (AUTO) 6 % (0-12); NEUTROPHILS # (AUTO) 6.6 X 10^3 (1.8-7.8); NEUTROPHILS % (AUTO) 72 % (42-75); PLATELET COUNT 275 10^3/uL (130-400); RED CELL DISTRIBUTION WIDTH 12.5 % (10.0-14.5); WHITE BLOOD COUNT 9.2 10^3/uL (4.3-11.0)
[2019-02-18] MEDS: LACTATED RINGERS 1,000 ML IV PRN ×2 (12:30→13:15)
[2019-02-18] MEDS ORDERED: MIDAZOLAM 2 MG/2 ML (VERSED) VIAL ONE (12:34)
[2019-02-18] MEDS ORDERED: fentaNYL INJECTION 100 MCG/2 ML AMP ONE (12:34)
--- NOTE | 2019-02-18 12:38 | Progress Note-Pre Operative ---
Pre-Operative Progress Note H&P Reviewed The H&P was reviewed, patient examined and no changes noted. Date Seen by Provider: Feb 18, 2019 Time Seen by Provider: 12:38 Date H&P Reviewed: Feb 18, 2019 Time H&P Reviewed: 12:38 Pre-Operative Diagnosis: DUB/intrauterine mass GUILLERMINA WHITE MD Feb 18, 2019 12:38
[2019-02-18] MEDS ORDERED: D5 LR IV SOLUTION 1,000 ML IV SCH (12:39)
--- NOTE | 2019-02-18 12:39 | Progress Note-Post Operative ---
Post-Operative Progess Note Surgeon (s)/Web Production Artist (s) Surgeon GUILLERMINA WHITE MD Web Production Artist: None Pre-Operative Diagnosis DUB/intrauterine mass Post-Operative Diagnosis Same Procedure & Operative Findings Date of Procedure 02/18/19 Procedure Performed/Findings Hysteroscopy with directed biopsy and D&C Anesthesia Type GETA Estimated Blood Loss Estimated blood loss (mL): 75cc Specimens/Packing Specimens Removed Directed biopsy from endometrial cavity as well as endometrial curettings Packing: None GUILLERMINA WHITE MD Feb 18, 2019 12:39
[2019-02-18] MEDS ORDERED: IBUP-1780 PO (12:41)
--- NOTE | 2019-02-18 12:42 | Discharge Instructions ---
Discharge Instructions Discharge Medications New, Converted or Re-Newed RX: RX on Chart Patient Instructions Patient Instructions: As directed Return to The Hospital For: as directed Activity & Diet Discharge Diet: No Restrictions Activity as Tolerated: No Orders-Post D/C & Referrals Follow Up Appt: Call to make follow up appt. for patient in 2 weeks. Activity: Rest for 24 hours, than as tolerated. Please call in RX to patient pharmacy. Diet: As tolerated-Clear Liquids only if nauseated. shower or tub bathe as desired. Nothing per vagina (no tampons, douching, or intercoUrse) for 2 weeks. Patient to return to the clinic as soon as possible for: Temperature greater than 101F, Severe Pain, Foul discharge from incision or vagina, Excessive Bleeding (more than a period). GUILLERMINA WHITE MD Feb 18, 2019 12:42
[2019-02-18] MEDS ORDERED: MEPERIDINE (DEMEROL) INJ 100 MG/ML IM ONE (12:45)
[2019-02-18] MEDS ORDERED: ONDANSETRON 4 MG/2 ML (SDV) Z0FRAN IVP PRN ×2 (12:45→13:30)
[2019-02-18] MEDS ORDERED: ESTROGENS CONJ IV 25 MG/5 ML (PREMARIN) VIAL IVP ONE (12:45)
[2019-02-18] MEDS ORDERED: PROMETHAZINE INJ 25 MG/ML (PHENERGAN) AMP IM ONE (12:45)
[2019-02-18] MEDS ORDERED: KETOROLAC 30 MG/ML VIAL IVP ONE (12:45)
[2019-02-18] MEDS ORDERED: morphine INJ 10 MG/ML 1ML (SYR OR VIAL) ONE (13:09)
[2019-02-18] MEDS ORDERED: SEVOFLURANE (ULTANE) 15 ML INHAL SOLN ONE ×3 (13:15)
[2019-02-18] MEDS ORDERED: proPOfol 200 MG/20 ML (DIPRIVAN) VIAL IV ONE (13:15)
[2019-02-18] MEDS ORDERED: DEXAMETHASONE 10 MG/ML (DECADRON) 1 ML VIAL ONE (13:15)
[2019-02-18] MEDS ORDERED: LIDOCAINE PF 2% 5 ML (XYLOCAINE) VIAL ONE (13:15)
--- OUTSIDE RECORDS SUMMARY | 2019-02-18 13:18 | XMS REPORT | Continuity of Care Document ---
Author Organization Unknown Address Unknown Allergies Active Description Code Type Severity Reaction Onset Reported/Identified Relationship to Patient Clinical Status Yes No known allergies [id number] NK N/A N/A 09/13/2013 Yes hydrocodone [id number] Drug Allergy Unknown N/A 02/21/2017 Yes hydrocodone [id number] Drug Allergy Moderate HIVES 06/16/2018 Yes sulfamethoxazole [id number] Drug Allergy Mild HIVES 06/16/2018 Yes trimethoprim [id number] Drug Allergy Mild HIVES 06/16/2018 Yes acetaminophen [id number] Drug Allergy Unknown RASH 06/16/2018 Yes oxycodone [id number] Drug Allergy Unknown RASH 06/16/2018 Medications There is no data. Problems Date Dx Coded Attending Type Code Diagnosis Diagnosed By 09/13/2013 STEFANIE MACIEL MD 075 INFECTIOUS MONONUCLEOSIS 09/13/2013 STEFANIE MACIEL MD 784.0 HEADACHE 09/13/2013 STEFANIE MACIEL MD 786.2 COUGH 09/13/2013 STEFANIE MACIEL MD 075 INFECTIOUS MONONUCLEOSIS 09/13/2013 STEFANIE MACIEL MD 708.9 URTICARIA NOS 09/13/2013 STEFANIE MACIEL MD 784.0 HEADACHE 09/13/2013 STEFANIE MACIEL MD 786.2 COUGH 02/18/2017 GUILLERMINA WHITE MD, Ot K80.50 CALCULUS OF BILE DUCT W/O CHOLANGITIS OR 02/26/2017 GUILLERMINA WHITE MD, Ot K80.50 CALCULUS OF BILE DUCT W/O CHOLANGITIS OR 02/26/2017 GUILLERMINA WHITE MD, Ot K80.50 CALCULUS OF BILE DUCT W/O CHOLANGITIS OR 02/26/2017 GUILLERMINA WHITE MD Ot K80.50 CALCULUS OF BILE DUCT W/O CHOLANGITIS OR 03/04/2017 GUILLERMINA WHITE MD Ot K80.50 CALCULUS OF BILE DUCT W/O CHOLANGITIS OR 03/04/2017 LEEROY MALAGON MD Ot K82.8 OTHER SPECIFIED DISEASES OF GALLBLADDER 03/04/2017 LEEROY MALAGON MD Ot Z01.818 ENCOUNTER FOR OTHER PREPROCEDURAL EXAMIN 03/07/2017 LEEROY MALAGON MD Ot K82.8 OTHER SPECIFIED DISEASES OF GALLBLADDER 03/07/2017 LEEROY MALAGON MD M Ot K81.1 CHRONIC CHOLECYSTITIS 03/07/2017 LEEROY MALAGON MD M Ot K82.8 OTHER SPECIFIED DISEASES OF GALLBLADDER 03/07/2017 LEEROY MALAGON MD M Ot Z87.891 PERSONAL HISTORY OF NICOTINE DEPENDENCE 03/13/2017 LEEROY MALAGON MD M Ot K81.1 CHRONIC CHOLECYSTITIS 03/13/2017 LEEROY MALAGON MD Ot Z87.891 PERSONAL HISTORY OF NICOTINE DEPENDENCE 03/15/2017 LEEROY MALAGON MD Ot K81.1 CHRONIC CHOLECYSTITIS 03/15/2017 LEEROY MALAGON MD M Ot Z87.891 PERSONAL HISTORY OF NICOTINE DEPENDENCE 06/16/2018 LEEROY MALAGON MD Ot Z01.818 ENCOUNTER FOR OTHER PREPROCEDURAL EXAMIN 06/17/2018 GUILLERMINA WHITE MD Ot K80.50 CALCULUS OF BILE DUCT W/O CHOLANGITIS OR 06/18/2018 GUILLERMINA WHITE MD Ot K80.50 CALCULUS OF BILE DUCT W/O CHOLANGITIS OR 06/23/2018 GUILLERMINA WHITE MD Ot K80.50 CALCULUS OF BILE DUCT W/O CHOLANGITIS OR 06/23/2018 LEEROY MALAGON MD Ot F17.210 NICOTINE DEPENDENCE, CIGARETTES, UNCOMPL 06/23/2018 LEEROY MALAGON MD Ot K52.9 NONINFECTIVE GASTROENTERITIS AND COLITIS 06/23/2018 LEEROY MALAGON MD Ot 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, UNSPECIF 06/23/2018 LEEROY MALAGON MD Ot K64.8 OTHER HEMORRHOIDS 06/25/2018 LEEROY MALAGON MD Ot F17.210 NICOTINE DEPENDENCE, CIGARETTES, UNCOMPL 06/25/2018 LEEROY MALAGON MD Ot K52.9 NONINFECTIVE GASTROENTERITIS AND COLITIS 06/25/2018 VESNA MCKINNEY, LEEROY Bullock Ot 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, UNSPECIF 06/25/2018 VESNA MCKINNEY, LEEROY Bullock Ot K64.8 OTHER HEMORRHOIDS 06/27/2018 CHRISTOPHER MCKINNEY, GUILLERMINA Pak Ot K80.50 CALCULUS OF BILE DUCT W/O CHOLANGITIS OR 06/30/2018 VESNA MCKINNEY, LEEROY Bullock Ot F17.210 NICOTINE DEPENDENCE, CIGARETTES, UNCOMPL 06/30/2018 VESNA MCKINNEY, LEEROY Bullock Ot K52.9 NONINFECTIVE GASTROENTERITIS AND COLITIS 06/30/2018 VESNA MCKINNEY, LEEROY Bullock Ot 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, UNSPECIF 06/30/2018 VESNA MCKINNEY, LEEROY Bullock Ot K64.8 OTHER HEMORRHOIDS 11/25/2018 CHRISTOPHER MCKINNEY, GUILLERMINA Pak Ot K80.50 CALCULUS OF BILE DUCT W/O CHOLANGITIS OR 11/25/2018 GINA MCKINNEY, RAFAL [place] Ot F41.9 ANXIETY DISORDER, UNSPECIFIED 11/25/2018 RAFAL FUENTES MD Ot M79.10 MYALGIA, UNSPECIFIED SITE 11/25/2018 RAFAL FUENTES MD Ot R05 COUGH 11/25/2018 RAFAL FUENTES MD Ot R50.9 FEVER, UNSPECIFIED 11/25/2018 RAFAL FUENTES MD Ot Z87.19 PERSONAL HISTORY OF OTHER DISEASES OF TH 11/25/2018 RAFAL FUENTES MD Ot Z87.440 PERSONAL HISTORY OF URINARY (TRACT) INFE 11/25/2018 RAFAL FUENTES MD Ot Z87.891 PERSONAL HISTORY OF NICOTINE DEPENDENCE 11/25/2018 RAFAL FUENTES MD Ot Z88.2 ALLERGY STATUS TO SULFONAMIDES STATUS 11/25/2018 RAFAL FUENTES MD Ot Z88.5 ALLERGY STATUS TO NARCOTIC AGENT STATUS 11/25/2018 RAFAL FUENTES MD Ot Z88.8 ALLERGY STATUS TO OTH DRUG/MEDS/BIOL SUB 11/25/2018 RAFAL FUENTES MD Ot Z98.890 OTHER SPECIFIED POSTPROCEDURAL STATES 11/27/2018 RAFAL FUENTES MD, Ot F41.9 ANXIETY DISORDER, UNSPECIFIED 11/27/2018 RAFAL FUENTES MD, Ot M79.10 MYALGIA, UNSPECIFIED SITE 11/27/2018 RAFAL FUENTES MD, Ot R05 COUGH 11/27/2018 RAFAL FUENTES MD, Ot R50.9 FEVER, UNSPECIFIED 11/27/2018 RAFAL FUENTES MD, Ot Z87.19 PERSONAL HISTORY OF OTHER DISEASES OF TH 11/27/2018 RAFAL FUENTES MD, Ot Z87.440 PERSONAL HISTORY OF URINARY (TRACT) INFE 11/27/2018 RAFAL FUENTES MD, Ot Z87.891 PERSONAL HISTORY OF NICOTINE DEPENDENCE 11/27/2018 RAFAL FUENTES MD, Ot Z88.2 ALLERGY STATUS TO SULFONAMIDES STATUS 11/27/2018 RAFAL FUENTES MD, Ot Z88.5 ALLERGY STATUS TO NARCOTIC AGENT STATUS 11/27/2018 RAFAL FUENTES MD, Ot Z88.8 ALLERGY STATUS TO OTH DRUG/MEDS/BIOL SUB 11/27/2018 RAFAL FUENTES MD, Ot Z98.890 OTHER SPECIFIED POSTPROCEDURAL STATES Procedures Code [place] [id number] EMERGENCY DEPT VISIT STEFANIE MACIEL MD 09/13/2013 [id number] EMERGENCY DEPT VISIT STEFANIE MACIEL MD 09/13/2013 Results Test Result Range Urine beta human chorionic gonadotropin (hCG) measurement - 03/07/17 07:55 Urine beta human chorionic gonadotropin (hCG) measurement NEGATIVE NEGATIVE Methicillin resistant Staphylococcus aureus (MRSA) screening culture - 03/07/17 08:35 Methicillin resistant Staphylococcus aureus (MRSA) screening culture NEG NRG Complete blood count (CBC) with automated white blood cell (WBC) differential - 03/07/17 08:36 Blood leukocytes automated count (number/volume) 6.2 10*3/uL 4.3-11.0 Blood erythrocytes automated count (number/volume) 4.51 10*6/uL 4.35-5.85 Venous blood hemoglobin measurement (mass/volume) 13.3 g/dL 11.5-16.0 Blood hematocrit (volume fraction) 39 % 35-52 Automated erythrocyte mean corpuscular volume 87 [foz_us] 80-99 Automated erythrocyte mean corpuscular hemoglobin (mass per erythrocyte) 30 pg 25-34 Automated erythrocyte mean corpuscular hemoglobin concentration measurement (mass/volume) 34 g/dL 32-36 Automated erythrocyte distribution width ratio 12.1 % 10.0- 14.5 Automated blood platelet count (count/volume) 191 10*3/uL 130-400 Automated blood platelet mean volume measurement 11.4 [foz_us] 7.4-10.4 Automated blood neutrophils/100 leukocytes 65 % 42-75 Automated blood lymphocytes/100 leukocytes 25 % 12-44 Blood monocytes/100 leukocytes 8 % 0-12 Automated blood eosinophils/100 leukocytes 2 % 0-10 Automated blood basophils/100 leukocytes 1 % 0-10 Blood neutrophils automated count (number/volume) 4.1 10*3 1.8-7.8 Blood lymphocytes automated count (number/volume) 1.5 10*3 1.0-4.0 Blood monocytes automated count (number/volume) 0.5 10*3 0.0- 1.0 Automated eosinophil count 0.1 10*3/uL 0.0-0.3 Automated blood basophil count (count/volume) 0.0 10*3/uL 0.0-0.1 Urine beta human chorionic gonadotropin (hCG) measurement - 06/23/18 09:48 Urine beta human chorionic gonadotropin (hCG) measurement NEGATIVE NEGATIVE Complete urinalysis with reflex to culture - 11/24/18 22:18 Urine color determination YELLOW NRG Urine clarity determination CLEAR NRG Urine pH measurement by test strip 7 5-9 Specific gravity of urine by test strip 1.010 1.016-1.022 Urine protein assay by test strip, semi-quantitative NEGATIVE NEGATIVE Urine glucose detection by automated test strip NEGATIVE NEGATIVE Erythrocytes detection in urine sediment by light microscopy NEGATIVE NEGATIVE Urine ketones detection by automated test strip NEGATIVE NEGATIVE Urine nitrite detection by test strip NEGATIVE NEGATIVE Urine total bilirubin detection by test strip NEGATIVE NEGATIVE Urine urobilinogen measurement by automated test strip (mass/volume) NORMAL NORMAL Urine leukocyte esterase detection by dipstick 1+ NEGATIVE Automated urine sediment erythrocyte count by microscopy (number/high power field) NONE NRG Automated urine sediment leukocyte count by microscopy (number/high power field) RARE NRG Bacteria detection in urine sediment by light microscopy TRACE NRG Squamous epithelial cells detection in urine sediment by light microscopy 2-5 NRG Crystals detection in urine sediment by light microscopy NONE NRG Casts detection in urine sediment by light microscopy NONE NRG Mucus detection in urine sediment by light microscopy NEGATIVE NRG Complete urinalysis with reflex to culture NO NRG Streptococcus pyogenes antigen detection - 11/24/18 22:25 Streptococcus pyogenes antigen detection NEGATIVE NEGATIVE Influenza virus A and B antigen detection - 11/24/18 22:25 FLU RESULT NEGATIVE FOR INFLUENZA A AND B ANTIGENS BY IA NRG Bacterial throat culture - 11/24/18 22:25 Bacterial throat culture NBS NRG Complete blood count (CBC) with automated white blood cell (WBC) differential - 11/24/18 23:43 Blood leukocytes automated count (number/volume) 11.8 10*3/uL 4.3-11.0 Blood erythrocytes automated count (number/volume) 4.32 10*6/uL 4.35-5.85 Venous blood hemoglobin measurement (mass/volume) 12.7 g/dL 11.5-16.0 Blood hematocrit (volume fraction) 38 % 35-52 Automated erythrocyte mean corpuscular volume 88 [foz_us] 80-99 Automated erythrocyte mean corpuscular hemoglobin (mass per erythrocyte) 29 pg 25-34 Automated erythrocyte mean corpuscular hemoglobin concentration measurement (mass/volume) 34 g/dL 32-36 Automated erythrocyte distribution width ratio 12.4 % 10.0- 14.5 Automated blood platelet count (count/volume) 170 10*3/uL 130-400 Automated blood platelet mean volume measurement 11.3 [foz_us] 7.4-10.4 Automated blood neutrophils/100 leukocytes 71 % 42-75 Automated blood lymphocytes/100 leukocytes 19 % 12-44 Blood monocytes/100 leukocytes 8 % 0-12 Automated blood eosinophils/100 leukocytes 2 % 0-10 Automated blood basophils/100 leukocytes 0 % 0-10 Blood neutrophils automated count (number/volume) 8.3 10*3 1.8-7.8 Blood lymphocytes automated count (number/volume) 2.3 10*3 1.0-4.0 Blood monocytes automated count (number/volume) 1.0 10*3 0.0- 1.0 Automated eosinophil count 0.2 10*3/uL 0.0-0.3 Automated blood basophil count (count/volume) 0.0 10*3/uL 0.0-0.1 Serum heterophile antibody titer - 11/24/18 23:43 Serum heterophile antibody titer NEGATIVE NEGATIVE Serum or plasma choriogonadotropin ( test) detection - 11/24/18 23:43 Serum or plasma choriogonadotropin ( test) detection NEGATIVE NEGATIVE Comprehensive metabolic panel - 11/24/18 23:43 Serum or plasma sodium measurement (moles/volume) 137 mmol/L 135-145 Serum or plasma potassium measurement (moles/volume) 3.8 mmol/L 3.6-5.0 Serum or plasma chloride measurement (moles/volume) 107 mmol/L 98-107 Carbon dioxide 19 mmol/L 21-32 Serum or plasma anion gap determination (moles/volume) 11 mmol/L 5-14 Serum or plasma urea nitrogen measurement (mass/volume) 10 mg/dL 7-18 Serum or plasma creatinine measurement (mass/volume) 0.81 mg/dL 0.60-1.30 Serum or plasma urea nitrogen/creatinine mass ratio 12 NRG Serum or plasma creatinine measurement with calculation of estimated glomerular filtration rate > NRG Serum or plasma glucose measurement (mass/volume) 92 mg/dL 70-105 Serum or plasma calcium measurement (mass/volume) 9.2 mg/dL 8.5-10.1 Serum or plasma total bilirubin measurement (mass/volume) 0.2 mg/dL 0.1-1.0 Serum or plasma alkaline phosphatase measurement (enzymatic activity/volume) 74 U/L 40-136 Serum or plasma aspartate aminotransferase measurement (enzymatic activity/volume) 14 U/L 5-34 Serum or plasma alanine aminotransferase measurement (enzymatic activity/volume) 10 U/L 0-55 Serum or plasma protein measurement (mass/volume) 7.1 g/dL 6.4-8.2 Serum or plasma albumin measurement (mass/volume) 3.7 g/dL 3.2-4.5 CALCIUM CORRECTED 9.4 mg/dL 8.5-10.1 Serum or plasma C reactive protein measurement (mass/volume) - 11/24/18 23:43 Serum or plasma C reactive protein measurement (mass/volume) 10.92 mg/dL 0.00-0.50 Complete blood count (CBC) with automated white blood cell (WBC) differential - 02/18/19 12:05 Blood leukocytes automated count (number/volume) 9.2 10*3/uL 4.3-11.0 Blood erythrocytes automated count (number/volume) 3.77 10*6/uL 4.35-5.85 Venous blood hemoglobin measurement (mass/volume) 10.8 g/dL 11.5-16.0 Blood hematocrit (volume fraction) 33 % 35-52 Automated erythrocyte mean corpuscular volume 86 [foz_us] 80-99 Automated erythrocyte mean corpuscular hemoglobin (mass per erythrocyte) 29 pg 25-34 Automated erythrocyte mean corpuscular hemoglobin concentration measurement (mass/volume) 33 g/dL 32-36 Automated erythrocyte distribution width ratio 12.5 % 10.0- 14.5 Automated blood platelet count (count/volume) 275 10*3/uL 130-400 Automated blood platelet mean volume measurement 11.1 [foz_us] 7.4-10.4 Automated blood neutrophils/100 leukocytes 72 % 42-75 Automated blood lymphocytes/100 leukocytes 21 % 12-44 Blood monocytes/100 leukocytes 6 % 0-12 Automated blood eosinophils/100 leukocytes 1 % 0-10 Automated blood basophils/100 leukocytes 1 % 0-10 Blood neutrophils automated count (number/volume) 6.6 10*3 1.8-7.8 Blood lymphocytes automated count (number/volume) 2.0 10*3 1.0-4.0 Blood monocytes automated count (number/volume) 0.6 10*3 0.0- 1.0 Automated eosinophil count 0.1 10*3/uL 0.0-0.3 Automated blood basophil count (count/volume) 0.1 10*3/uL 0.0-0.1 Encounters ACCT No. Visit Date/Time Discharge Status Pt. Type Provider Facility Loc./Unit Complaint [id number] 09/13/2013 12:35:00 09/13/2013 13:10:00 [id number]13/2013 12:50:00 09/13/2013 13:05:00 DIS Outpatient STEFANIE MACIEL MD [facility] ER [id number] 09/10/2014 09:45:32 09/10/2014 23:59:59 CHRISTEL Outpatient Fili Onofre [id number] 09/09/2014 15:45:12 09/09/2014 23:59:59 CHRISTEL Outpatient Fili Onofre [id number] 06/11/2014 16:10:21 06/11/2014 23:59:59 CLS Outpatient Fransisca Santiago [id number] 09/10/2013 10:40:25 09/10/2013 23:59:59 CLS Outpatient LabFili cabrales [id number] 09/03/2013 16:05:30 09/03/2013 23:59:59 CLS Outpatient LabFili cabrales [id number] 03/19/2013 11:01:26 03/19/2013 23:59:59 CLS Outpatient LabesCarito [id number] 03/11/2013 11:47:37 03/11/2013 23:59:59 CLS Outpatient LabesCarito [id number] 02/18/2013 11:16:53 02/18/2013 23:59:59 CLS Outpatient LabFili cabrales [id number] 02/16/2019 05:42:00 02/16/2019 14:23:00 DIS Outpatient GUILLERMINA WHITE MD [facility] PREOP DYSFUNCTIONAL UTERINE BLEEDING [id number] 11/24/2018 21:54:00 11/25/2018 01:45:00 DIS Emergency RAFAL FUENTES MD [facility] ER FEVER/HEADACHE/NECK STIFFNESS/PAIN [id number] 06/23/2018 09:34:00 06/23/2018 12:45:00 DIS Outpatient LEEROY MALAGON MD [facility] ENDO RECTAL BLEEDING [id number] 06/16/2018 05:40:00 06/16/2018 14:42:00 DIS Outpatient LEEROY MALAGON MD [facility] PREOP COLONOSCOPY [id number] 03/07/2017 07:31:00 03/07/2017 14:55:00 DIS Outpatient LEEROY MALAGON MD [facility] SDC GALLBLADDER DYSKENESIA [id number] 03/04/2017 06:53:00 03/04/2017 15:53:00 DIS Outpatient LEEROY MALAGON MD [facility] PREOP GALLBLADDER DYSKINESIA [id number] 02/21/2017 09:34:00 02/21/2017 23:59:59 CLS Outpatient GUILLERMINA WHITE MD [facility] RAD BILARY COLIC [id number] 02/05/2017 09:08:00 02/05/2017 23:59:59 CLS Outpatient CHRISTOPHER MCKINNEY, GUILLERMINA Pak [facility] [id number] 02/18/2019 13:00:00 PEN Preadmit GUILLERMINA WHITE MD [facility] DYSFUNCTIONAL UTERINE BLEEDING
[2019-02-18] MEDS ORDERED: fentaNYL INJECTION 100 MCG/2 ML AMP IVP ONE (13:30)
[2019-02-18] MEDS ORDERED: MEPERIDINE (DEMEROL) INJ 50 MG/ML IVP ONE (13:30)
[2019-02-18] MEDS ORDERED: WATER (STERILE) FOR INJECTION 10 ML ONE (13:37)
[2019-02-18] MEDS ORDERED: KETOROLAC 30 MG/ML VIAL ONE (13:37)
[2019-02-18] MEDS ORDERED: ESTROGENS CONJ IV 25 MG/5 ML (PREMARIN) VIAL ONE (13:38)
[2019-02-18] MEDS ORDERED: D5 LR IV SOLUTION 1,000 ML IV ONE (15:04)
--- NOTE | 2019-02-18 15:12 | NUR ---
VOMITED 200 CC OF GREENISH EMESIS WITH UNDIGESTED RENAE CRACKERS. D5LR STARTED AND ZOFRAN 12 MG SIVP GIVEN FOR CONTINUED NAUSEA. FAMILY ATTENTIVE AT THE BEDSIDE.
--- NOTE | 2019-02-18 15:57 | OPERATIVE REPORT ---
DATE OF SERVICE: 02/18/2019 PREOPERATIVE DIAGNOSES: Dysfunctional uterine bleeding and intrauterine mass. POSTOPERATIVE DIAGNOSES: Dysfunctional uterine bleeding and intrauterine mass with pathology pending. OPERATIVE PROCEDURE: Hysteroscopy with directed biopsy and D and C. OPERATIVE DESCRIPTION: With the patient in the supine position under satisfactory general anesthesia, she was repositioned in the dorsal lithotomy position in the [facility] stirrups and prepped and draped in the usual fashion for vaginal surgery. The urinary bladder had been drained prior to coming to the operating room. A weighted speculum was placed in posterior fornix of vagina, the cervix was exposed and grasped anteriorly with single tooth tenaculum. Uterus was sounded to 9 cm with uterine sound. The cervix was then serially dilated with Tito dilators to accommodate a hysteroscope, which was introduced using LR as a distending medium, the endometrial cavity was examined. There was a large complex appearing mass filling the endometrial cavity. The scope could be passed pretty well completely around this mass. A termite control representative biopsy was taken from the mass and appeared to be primarily blood clot and mucousy material with some occasional solid components. The bulk of that mass was then removed with a ring clamp passed through the cervix. The endometrial cavity was then sharply curettaged in all 4 quadrants to good uterine cry. A solid appearing growth had been biopsied on the posterior uterine wall prior to the sharp curettage. All of these specimens were sent to pathology, labeled appropriately for permanent section. The hysteroscope was reintroduced. The endometrial cavity was examined. There was some bleeding that was gradually decreasing as we were observing. The endometrial cavity had no particular remaining abnormal pathology. The bleeding was minimal. At this point, we discontinued the procedure. A total of 3 liters of LR was used as distending medium, almost an entire amount was recovered. Sponge and needle counts were correct on completion of the procedure. The hysteroscope was removed as was the tenaculum. There was no bleeding from the puncture sites from the tenaculum. At this point, there was no significant bleeding from the cervical os. The patient was uneventfully awakened from her general anesthesia and transferred to the recovery room in stable condition with plans for discharge home PAR. Job ID: [id number] DocumentID: [id number] Dictated Date: 02/18/2019 13:19:12 [employer] Examiner Date: 02/18/2019 15:56:22 Dictated By: GUILLERMINA WHITE MD
--- NOTE | 2019-02-18 18:57 | Anesthesia-General Post-Op ---
General Patient Condition Mental Status/LOC: Same as Preop Cardiovascular: Satisfactory Nausea/Vomiting: Absent Respiratory: Satisfactory Pain: Controlled Complications: Absent Post Op Complications Complications None Follow Up Care/Instructions Patient Instructions None needed. Anesthesia/Patient Condition Patient Condition Patient is doing well, no complaints, stable vital signs, no apparent adverse anesthesia problems. No complications reported per nursing. CORKY SEPULVEDA CRNA Feb 18, 2019 18:57
== END 2019-02-18 16:30 | disposition home or self-care (01) ==
LOC: SDC 11:50
PROVIDERS: ATTEND Obstetrics & Gynecology
DX: D26.1 Other benign neoplasm of corpus uteri (principal); N93.8 Other specified abnormal uterine and vaginal bleeding; I49.8 Other specified cardiac arrhythmias; D64.9 Anemia, unspecified; F41.9 Anxiety disorder, unspecified; E16.2 Hypoglycemia, unspecified; J30.2 Other seasonal allergic rhinitis; Z79.3 Long term (current) use of hormonal contraceptives; Z88.6 Allergy status to analgesic agent; Z88.1 Allergy status to other antibiotic agents; Z88.2 Allergy status to sulfonamides; Z80.3 Family history of malignant neoplasm of breast; Z82.49 Family history of ischemic heart disease and other diseases of the circulatory system; Z87.891 Personal history of nicotine dependence
CPT/HCPCS: 36415; 84703; 85025; 87081

== ENCOUNTER → 2021-03-21 | Outpatient (CLI) | payer BC, OTHER ==
[~2021-03-21] MED LIST changes: +IBUP-1780 PO; -TRAM50TA2 PO; +TRM50T PO
--- NOTE | 2021-03-21 09:34 | Diagnostic Imaging Report ---
PROCEDURE: US Thyroid. TECHNIQUE: Multiple real-time grayscale images were obtained of the thyroid in various projections. INDICATION: Goiter. No relevant comparison. FINDINGS: The right thyroid lobe measured 5.4 x 1.3 x 1.4 cm, the left lobe 4.2 x 1.2 x 1.6 cm. Glandular volume is within normal limits and the parenchymal echotexture pattern appeared homogenous and normal. There is normal color Doppler blood flow. There is no evidence for solid or cystic thyroidal mass. No parathyroidal lesion. IMPRESSION: Normal sonographic appearance of the nonfocal thyroid. Dictated by: Dictated on workstation # [id number]
== END ==
LOC: RAD 08:00
PROVIDERS: ATTEND Otolaryngology Otolaryngology/Facial Plastic Surgery
DX: E04.9 Nontoxic goiter, unspecified (principal)
CPT/HCPCS: 76536